=== PATIENT | female | born 1985 | race African-American/Black ===

== ENCOUNTER 2022-02-02 17:29 | Inpatient (IN) | payer OTHER ==
[2022-02-02 19:06] VITALS: BMI 23.2
[2022-02-02] MEDS ORDERED: BENZOCAINE/MENTHOL (CHLORASEPTIC ) LOZENGE MM PRN (20:14)
[2022-02-02] MEDS ORDERED: BISMUTH SUBSALICYLATE 524 MG/30 ML PO PRN (20:14)
[2022-02-02] MEDS ORDERED: MAGNESIUM HYDROX 2400MG/30ML ORAL SUSPENSION 30 ML CUP PO PRN (20:14)
[2022-02-02] MEDS ORDERED: LOPERAMIDE HCL 2 MG CAPSULE PO PRN (20:14)
[2022-02-02] MEDS ORDERED: MAGNESIUM CITRATE 300 ML BOTTLE PO PRN (20:14)
[2022-02-02] MEDS ORDERED: MAG HYDROX/AL HYDROX/SIMETH 30 ML UNIT-DOSE CUP PO PRN (20:14)
[2022-02-02] MEDS ORDERED: ONDANSETRON *ODT* 4 MG TABLET SL PRN (20:14)
[2022-02-02] MEDS ORDERED: guaiFENesin 200 MG/10 ML 10 ML UNIT-DOSE CUPS PO PRN (20:14)
[2022-02-02] MEDS ORDERED: ACETAMINOPHEN 325 MG TABLET (FP) PO PRN ×2 (20:14)
[2022-02-02] MEDS ORDERED: NICOTINE POLACRILEX 2 MG GUM BUC PRN (20:14)
[2022-02-02] MEDS ORDERED: IBUPROFEN 400 MG TABLET (FP) PO PRN (20:14)
[2022-02-02] MEDS ORDERED: METHOCARBAMOL 500 MG TABLET PO PRN (20:14)
[2022-02-02] MEDS ORDERED: DICYCLOMINE HCL 10 MG CAPSULE PO PRN (20:14)
[2022-02-02] MEDS ORDERED: hydrOXYzine PAMOATE 25 MG CAPSULE (FP) PO PRN (20:14)
[2022-02-02] MEDS ORDERED: chlordiazePOXIDE HCL 25 MG CAPSULE PO PRN (20:14)
[2022-02-02] MEDS ORDERED: P-EPHED 60MG/TRIPROLIDI 2.5MG TABLET PO PRN (20:14)
[2022-02-02] MEDS ORDERED: MELATONIN 5 MG TABLETS PO SCH (22:00)
[2022-02-02] MEDS ORDERED: THIAMINE HCL 100 MG TABLET (FP) PO SCH (22:00)
[2022-02-03] MEDS: chlordiazePOXIDE HCL 25 MG CAPSULE PO SCH ×3 (01:10→11:11)
[2022-02-03 09:35] VITALS: BP 119/64; PULSE 111; TEMP 97.3
[2022-02-03] MEDS ORDERED: NICOTINE 21 MG/24 HOURS TOPICAL PATCH TD SCH (10:00)
[2022-02-03] MEDS ORDERED: PRENATAL VITAMINS W/ FOLIC ACID TABLET (FP) PO SCH (10:00)
[2022-02-03 11:38] LABS: HEMATOCRIT 42.9 % (32.4-45.2); MCH 30.8 pg (25.7-33.7); MCHC 32.7 g/dl (32.0-36.0); MEAN PLT VOLUME 8.2 fl (7.5-11.1); PLATELET COUNT 323 10^3/uL (134-434); RBC 4.56 M/mm3 (3.60-5.2); RDW 15.3 % (11.6-15.6); WHITE BLOOD COUNT 3.8 K/mm3 (4.0-10.0)
[2022-02-03 12:17] LABS: CALCIUM 8.6 mg/dL (8.5-10.1)
[2022-02-03 12:18] LABS: ALBUMIN 2.9 g/dl (3.4-5.0); BLOOD UREA NITROGEN 19.8 mg/dL (7-18)
[2022-02-03 12:21] LABS: CREATININE 0.8 mg/dL (0.55-1.3)
[2022-02-03 12:22] LABS: BILIRUBIN,TOTAL 0.3 mg/dL (0.2-1)
[2022-02-03 12:26] LABS: TOT PROT 5.8 g/dl (6.4-8.2)
[2022-02-04] MEDS ORDERED: chlordiazePOXIDE HCL 25 MG CAPSULE PO SCH (05:00)
[2022-02-05] MEDS ORDERED: chlordiazePOXIDE HCL 10 MG CAPSULE PO PRN
[2022-02-05] MEDS ORDERED: chlordiazePOXIDE HCL 10 MG CAPSULE PO SCH (05:00)
[2022-02-06] MEDS ORDERED: chlordiazePOXIDE HCL 10 MG CAPSULE PO SCH (05:00)
[2022-02-07] MEDS ORDERED: chlordiazePOXIDE HCL 10 MG CAPSULE PO ONE (05:00)
== END 2022-02-03 10:35 | disposition home or self-care (01) | DRG 774 ==
LOC: YASAS 17:29 → Y6N 21:35
PROVIDERS: ADMIT Allergy & Immunology; ATTEND Surgery
PROC: HZ2ZZZZ Detoxification Services for Substance Abuse Treatment (ICD-10-PCS; principal; 2022-02-02)
DX: F10.230 Alcohol dependence with withdrawal, uncomplicated (principal); F14.20 Cocaine dependence, uncomplicated; F17.213 Nicotine dependence, cigarettes, with withdrawal; F20.9 Schizophrenia, unspecified; F31.9 Bipolar disorder, unspecified; F41.9 Anxiety disorder, unspecified; G47.30 Sleep apnea, unspecified; Z91.018 Allergy to other foods; Z88.8 Allergy status to other drugs, medicaments and biological substances
CPT/HCPCS: 36415; 80053; 85027; 86780; C9803-CS; U0003; U0005

== ENCOUNTER 2023-10-18 11:33 | Inpatient (IN) | payer OTHER ==
[2023-10-18 11:58] VITALS: BMI 25.6
[2023-10-18] MEDS ORDERED: MAGNESIUM HYDROX 2400MG/30ML ORAL SUSPENSION 30 ML CUP PO PRN (13:05)
[2023-10-18] MEDS ORDERED: POLYETHYLENE GLYCOL (HEALTHYLAX) 3350 17 GM PACKET PO PRN (13:05)
[2023-10-18] MEDS ORDERED: BISMUTH SUBSALICYLATE 524 MG/30 ML PO PRN (13:05)
[2023-10-18] MEDS ORDERED: ACETAMINOPHEN 325 MG TABLET (FP) PO PRN (13:05)
[2023-10-18] MEDS ORDERED: NALOXONE HCL (KLOXXADO) 8 MG SPRAY NS PRN (13:05)
[2023-10-18] MEDS ORDERED: IBUPROFEN 600 MG TABLET (FP) PO PRN (13:05)
[2023-10-18] MEDS ORDERED: guaiFENesin 600 MG TABLET.ER (FP) PO PRN (13:05)
[2023-10-18] MEDS ORDERED: DICYCLOMINE HCL 10 MG CAPSULE PO PRN (13:05)
[2023-10-18] MEDS ORDERED: BENZONATATE 200 MG CAPSULE PO PRN (13:05)
[2023-10-18] MEDS ORDERED: IBUPROFEN 400 MG TABLET (FP) PO PRN (13:05)
[2023-10-18] MEDS ORDERED: BENZOCAINE/MENTHOL (CHLORASEPTIC ) LOZENGE MM PRN (13:05)
[2023-10-18] MEDS ORDERED: NICOTINE POLACRILEX 2 MG GUM BUC PRN (13:05)
[2023-10-18] MEDS ORDERED: ONDANSETRON *ODT* 4 MG TABLET SL PRN (13:05)
[2023-10-18] MEDS ORDERED: NALOXONE HCL 0.4 MG/ML VIAL IM PRN (13:05)
[2023-10-18] MEDS ORDERED: LOPERAMIDE HCL 2 MG CAPSULE PO PRN (13:05)
[2023-10-18] MEDS: hydrOXYzine PAMOATE 25 MG CAPSULE (FP) PO PRN (19:08)
[2023-10-18] MEDS: METHOCARBAMOL 500 MG TABLET PO PRN (19:12)
[2023-10-18] MEDS: MAG HYDROX/AL HYDROX/SIMETH 30 ML UNIT-DOSE CUP PO PRN (19:13)
[2023-10-18] MEDS: THIAMINE HCL 100 MG TABLET (FP) PO SCH (22:17)
[2023-10-18] MEDS: MELATONIN 5 MG TABLETS PO SCH (22:17)
[2023-10-19] MEDS ORDERED: diazePAM 5 MG TABLET PO PRN (10:24)
[2023-10-19] MEDS: PRENATAL VITAMINS W/ FOLIC ACID TABLET (FP) PO SCH (10:30)
[2023-10-19] MEDS: NICOTINE 14 MG/24 HOURS TOPICAL PATCH TD SCH (10:40)
[2023-10-19] MEDS: diazePAM 5 MG TABLET PO SCH (10:49)
[2023-10-19 11:51] LABS: HEMATOCRIT 41.6 % (32.4-45.2); HEMOGLOBIN 14.4 GM/dL (10.7-15.3); MCH 32.2 pg (25.7-33.7); MCHC 34.7 g/dl (32.0-36.0); MEAN CELL VOLUME 92.9 fl (80-96); MEAN PLT VOLUME 7.3 fl (7.5-11.1); PLATELET COUNT 446 10^3/uL (134-434); RBC 4.47 M/mm3 (3.60-5.2); RDW 15.1 % (11.6-15.6)
[2023-10-19 12:42] LABS: ALBUMIN 3.6 g/dl (3.4-5.0)
[2023-10-19 12:43] LABS: BLOOD UREA NITROGEN 6.3 mg/dL (7-18)
[2023-10-19 12:46] LABS: CREATININE 0.7 mg/dL (0.55-1.3)
[2023-10-19 12:47] LABS: BILIRUBIN,TOTAL 0.5 mg/dL (0.2-1)
[2023-10-19] MEDS: CITALOPRAM HYDROBROMIDE 20 MG TABLET PO SCH (15:25)
[2023-10-19] MEDS: amLODIPine BESYLATE 5 MG TABLET (FP) PO ONE (23:19)
[2023-10-20] MEDS: diazePAM 5 MG TABLET PO SCH (05:40)
[2023-10-20] MEDS ORDERED: cloNIDine HCL 0.1 MG TABLET PO PRN (09:40)
[2023-10-21] MEDS: diazePAM 5 MG TABLET PO SCH (05:29)
[2023-10-21 05:59] VITALS: RESP 18
[2023-10-21 13:42] VITALS: BP 110/77; PULSE 88; TEMP 97.1
[2023-10-22] MEDS ORDERED: diazePAM 5 MG TABLET PO ONE (06:00)
== END 2023-10-21 14:45 | disposition other institution (70) | DRG 774 ==
LOC: YASAS 11:33 → Y6N 13:36
PROVIDERS: ADMIT Allergy & Immunology; ATTEND Surgery
PROC: HZ2ZZZZ Detoxification Services for Substance Abuse Treatment (ICD-10-PCS; principal; 2023-10-18)
DX: F10.230 Alcohol dependence with withdrawal, uncomplicated (principal); F14.20 Cocaine dependence, uncomplicated; F17.210 Nicotine dependence, cigarettes, uncomplicated; F19.282 Other psychoactive substance dependence with psychoactive substance-induced sleep disorder; F19.280 Other psychoactive substance dependence with psychoactive substance-induced anxiety disorder; F25.0 Schizoaffective disorder, bipolar type; F41.8 Other specified anxiety disorders; G47.30 Sleep apnea, unspecified; J45.20 Mild intermittent asthma, uncomplicated; Z62.810 Personal history of physical and sexual abuse in childhood; Z91.410 Personal history of adult physical and sexual abuse; Z88.8 Allergy status to other drugs, medicaments and biological substances
CPT/HCPCS: 36415; 80053; 80307; 81025; 85027; 86780; 87635; 87811; 93005; 93010

== ENCOUNTER 2023-10-21 14:33 | Inpatient (IN) | payer OTHER ==
[~2023-10-21 14:33] MED LIST: ACETAMINOPHEN 325 MG TABLET (FP) PO PRN; BENZOCAINE/MENTHOL (CHLORASEPTIC ) LOZENGE MM PRN; BENZONATATE 200 MG CAPSULE PO PRN; IBUPROFEN 400 MG TABLET (FP) PO PRN; IBUPROFEN 600 MG TABLET (FP) PO PRN; LOPERAMIDE HCL 2 MG CAPSULE PO PRN; MAG HYDROX/AL HYDROX/SIMETH 30 ML UNIT-DOSE CUP PO PRN; MAGNESIUM HYDROX 2400MG/30ML ORAL SUSPENSION 30 ML CUP PO PRN; NICOTINE 14 MG/24 HOURS TOPICAL PATCH TD PRN; NICOTINE POLACRILEX 2 MG GUM BUC PRN; POLYETHYLENE GLYCOL (HEALTHYLAX) 3350 17 GM PACKET PO PRN; guaiFENesin 600 MG TABLET.ER (FP) PO PRN
[2023-10-21] MEDS: ACAMPROSATE CALCIUM 333 MG TABLET.DR PO SCH (14:52)
[2023-10-21] MEDS: THIAMINE HCL 100 MG TABLET (FP) PO SCH (21:13)
[2023-10-21] MEDS: MELATONIN 5 MG TABLETS PO SCH (21:13)
[2023-10-22] MEDS: hydrOXYzine PAMOATE 25 MG CAPSULE (FP) PO PRN (06:23)
[2023-10-22] MEDS: CITALOPRAM HYDROBROMIDE 20 MG TABLET PO SCH (09:52)
[2023-10-22] MEDS: PRENATAL VITAMINS W/ FOLIC ACID TABLET (FP) PO SCH (09:52)
[2023-10-22] MEDS: METHOCARBAMOL 500 MG TABLET PO PRN (20:29)
[2023-10-25 07:25] VITALS: BP 102/65; PULSE 72; RESP 16; TEMP 97.4
[2023-10-25 13:30] LABS: PH,URINE 6.5 (5.0-8.0); URINE APPEARANCE TURBID; URINE BILIRUBIN NEGATIVE (NEGATIVE); URINE COLOR YELLOW; URINE GLUCOSE (UA) NEGATIVE (NEGATIVE); URINE KETONE NEGATIVE (NEGATIVE); URINE LEUK ESTERASE NEGATIVE (NEGATIVE); URINE NITRITE NEGATIVE (NEGATIVE); URINE PROTEIN NEGATIVE (NEGATIVE); URINE UROBILINOGEN 0.2 mg/dL (0.2-1.0)
[2023-10-25 14:04] LABS: EPI CELLS 24 /uL (0-25.1); HYALINE CASTS 1 /uL (0-3.1); URINE BACTERIA 34 /uL (0-1359); URINE RBC 2 /uL (0-23.9); URINE WBC 1 /uL (0-25.8)
[2023-10-25 14:29] LABS: HIV INTERPRETATION NEGATIVE (NEGATIVE)
[2023-10-25] MEDS ORDERED: QUEtiapine FUMARATE 100 MG TABLET (FP) PO SCH (22:00)
== END 2023-10-25 14:22 | disposition left against medical advice (07) | DRG 770 ==
LOC: YASAS 14:33 → Y5N 14:35
PROVIDERS: ADMIT Allergy & Immunology; ATTEND Psychiatry & Neurology Pain Medicine
PROC: HZ42ZZZ Group Counseling for Substance Abuse Treatment, Cognitive-Behavioral (ICD-10-PCS; principal; 2023-10-21)
DX: F10.20 Alcohol dependence, uncomplicated (principal); F14.20 Cocaine dependence, uncomplicated; F17.210 Nicotine dependence, cigarettes, uncomplicated; Z88.8 Allergy status to other drugs, medicaments and biological substances
CPT/HCPCS: 36415; 81003; 87389; 87491; 87591; 87661

== ENCOUNTER 2024-01-27 22:34 | Inpatient (IN) | payer OTHER ==
[2024-01-28] MEDS ORDERED: TRIMETHOBENZAMIDE HCL 200MG/2ML INJ IM ONE (00:15)
[2024-01-28] MEDS: TRIMETHOBENZAMIDE HCL 200MG/2ML INJ IM ONE (00:21)
[2024-01-28 00:29] VITALS: BMI 22.6
[2024-01-28] MEDS ORDERED: LOPERAMIDE HCL 2 MG CAPSULE PO PRN (00:34)
[2024-01-28] MEDS ORDERED: ONDANSETRON *ODT* 4 MG TABLET SL PRN (00:34)
[2024-01-28] MEDS ORDERED: MAGNESIUM HYDROX 2400MG/30ML ORAL SUSPENSION 30 ML CUP PO PRN (00:34)
[2024-01-28] MEDS ORDERED: BISMUTH SUBSALICYLATE 524 MG/30 ML PO PRN (00:34)
[2024-01-28] MEDS ORDERED: NALOXONE HCL (KLOXXADO) 8 MG SPRAY NS PRN (00:34)
[2024-01-28] MEDS ORDERED: BENZOCAINE/MENTHOL (CHLORASEPTIC ) LOZENGE MM PRN (00:34)
[2024-01-28] MEDS ORDERED: guaiFENesin 600 MG TABLET.ER (FP) PO PRN (00:34)
[2024-01-28] MEDS ORDERED: NALOXONE HCL 0.4 MG/ML VIAL IM PRN (00:34)
[2024-01-28] MEDS ORDERED: IBUPROFEN 400 MG TABLET (FP) PO PRN (00:34)
[2024-01-28] MEDS ORDERED: POLYETHYLENE GLYCOL (HEALTHYLAX) 3350 17 GM PACKET PO PRN (00:34)
[2024-01-28] MEDS ORDERED: ACETAMINOPHEN 325 MG TABLET (FP) PO PRN (00:34)
[2024-01-28] MEDS ORDERED: DICYCLOMINE HCL 10 MG CAPSULE PO PRN (00:34)
[2024-01-28] MEDS ORDERED: MAG HYDROX/AL HYDROX/SIMETH 30 ML UNIT-DOSE CUP PO PRN (00:34)
[2024-01-28] MEDS ORDERED: IBUPROFEN 600 MG TABLET (FP) PO PRN (00:34)
[2024-01-28] MEDS: LORazepam 2 MG/ML SDV VIAL IM ONE (00:51)
[2024-01-28] MEDS: chlordiazePOXIDE HCL 25 MG CAPSULE PO SCH (05:24)
[2024-01-28] MEDS: BUDESONIDE/FORMETEROL FUMARATE 80/4.5 mcg INHALER IH SCH (10:29)
[2024-01-28] MEDS: NICOTINE 14 MG/24 HOURS TOPICAL PATCH TD SCH (10:31)
[2024-01-28] MEDS: PRENATAL VITAMINS W/ FOLIC ACID TABLET (FP) PO SCH (10:31)
[2024-01-28] MEDS ORDERED: ALBUTEROL SO4 0.083% IH SOL 2.5 MG/3 ML VIAL.NEB. NEB PRN (13:35)
[2024-01-28] MEDS: MELATONIN 5 MG TABLETS PO SCH (22:54)
[2024-01-28] MEDS: THIAMINE 100 MG TABLET PO SCH (22:55)
[2024-01-28] MEDS: chlordiazePOXIDE HCL 25 MG CAPSULE PO PRN (22:56)
[2024-01-29] MEDS: chlordiazePOXIDE HCL 25 MG CAPSULE PO SCH (05:50)
[2024-01-29] MEDS: busPIRone HCL 5 MG TABLET PO SCH (10:55)
[2024-01-29] MEDS: CITALOPRAM HYDROBROMIDE 20 MG TABLET PO SCH (10:55)
[2024-01-29] MEDS: hydrOXYzine PAMOATE 25 MG CAPSULE (FP) PO PRN (18:00)
[2024-01-29] MEDS: METHOCARBAMOL 500 MG TABLET PO PRN (18:00)
[2024-01-30] MEDS ORDERED: chlordiazePOXIDE HCL 10 MG CAPSULE PO PRN
[2024-01-30] MEDS: chlordiazePOXIDE HCL 10 MG CAPSULE PO SCH (05:57)
[2024-01-30] MEDS: propRANOLol HCL 10 MG TABLET PO SCH (10:48)
[2024-01-30] MEDS: BENZONATATE 200 MG CAPSULE PO PRN (17:14)
[2024-01-30] MEDS: ALBUTEROL SO4 HFA INHALER IH PRN (22:26)
[2024-01-31] MEDS: chlordiazePOXIDE HCL 10 MG CAPSULE PO SCH (05:44)
[2024-01-31] MEDS: NICOTINE POLACRILEX 2 MG LOZENGE BC PRN (18:44)
[2024-02-01] MEDS: chlordiazePOXIDE HCL 10 MG CAPSULE PO ONE (06:36)
[2024-02-01 11:04] VITALS: BP 111/64; PULSE 97; RESP 18; TEMP 97.7
== END 2024-02-01 11:08 | disposition home or self-care (01) | DRG 774 ==
LOC: YASAS 22:34 → Y6N 01-28 01:22
PROVIDERS: ADMIT Allergy & Immunology; ATTEND Surgery
PROC: HZ2ZZZZ Detoxification Services for Substance Abuse Treatment (ICD-10-PCS; principal; 2024-01-28)
DX: F10.230 Alcohol dependence with withdrawal, uncomplicated (principal); F14.20 Cocaine dependence, uncomplicated; F17.210 Nicotine dependence, cigarettes, uncomplicated; F19.280 Other psychoactive substance dependence with psychoactive substance-induced anxiety disorder; F19.282 Other psychoactive substance dependence with psychoactive substance-induced sleep disorder; F19.24 Other psychoactive substance dependence with psychoactive substance-induced mood disorder; F25.9 Schizoaffective disorder, unspecified; F41.8 Other specified anxiety disorders; I10 Essential (primary) hypertension; J45.20 Mild intermittent asthma, uncomplicated; Z62.810 Personal history of physical and sexual abuse in childhood; Z91.410 Personal history of adult physical and sexual abuse; Z59.00 Homelessness unspecified
CPT/HCPCS: 80305; 80307; 81025